=== PATIENT | male | born 1965 | race Hispanic/Latino ===

== ENCOUNTER → 2018-08-28 | Outpatient (CLI) | payer MEDICARE ==
[~2018-08-28] VITALS: Ht 170.2 cm; Wt 137.4 kg
[~2018-08-28] MED LIST: REGADENOSON 0.4 MG/5 ML PF SYG IVP SCH
== END | disposition home or self-care (01) ==
LOC: SHCH 08:40
PROVIDERS: ATTEND Internal Medicine Cardiovascular Disease
DX: Z01.810 Encounter for preprocedural cardiovascular examination (principal); I25.10 Atherosclerotic heart disease of native coronary artery without angina pectoris; I10 Essential (primary) hypertension
CPT/HCPCS: 78452; 93017; 96374; A9500 ×2; J2785

== ENCOUNTER 2019-05-29 06:59 | Day surgery (SDC) | payer MEDICARE ==
[~2019-05-29] VITALS: Ht 165.1 cm; Wt 142.7 kg
[2019-05-29] VITALS (7 sets, daily range): BP systolic 117–161; BP diastolic 62–83
[2019-05-29 08:24] LABS: POTASSIUM 4.8 mmol/L (3.5-5.1)
[2019-05-29 08:37] LABS: CREATININE 9.5 mg/dL (0.5-1.5)
[2019-05-29] MEDS ORDERED: DOCU-272 PO (08:38)
[2019-05-29] MEDS ORDERED: PRAV40TA3 PO (08:38)
[2019-05-29] MEDS ORDERED: [UNRECOGNIZED DRUG - OTHER] PO (08:38)
[2019-05-29] MEDS ORDERED: GABA600T10 PO (08:38)
[2019-05-29] MEDS ORDERED: FOLI1TAB85 PO (08:38)
[2019-05-29] MEDS ORDERED: METO50TA18 PO (08:38)
[2019-05-29] MEDS ORDERED: LISI-613 PO (08:38)
[2019-05-29] MEDS ORDERED: ACET-66 PO (08:38)
[2019-05-29] MEDS ORDERED: LISI40TA4 PO (08:38)
[2019-05-29] MEDS ORDERED: RANI150C4 PO (08:38)
[2019-05-29] MEDS ORDERED: VALA500T38 PO (08:38)
[2019-05-29] MEDS ORDERED: METO25TA6 PO (08:38)
[2019-05-29] MEDS ORDERED: FURO40TA5 PO (08:38)
[2019-05-29] MEDS ORDERED: SODIUM CHLORIDE 0.9% 1000ML 1,000 ML IV ONE (08:57)
[2019-05-29 09:12] LABS: BASOPHILS % (AUTO) 0.7 % (0.0-5.0); EOSINOPHILS % (AUTO) 4.4 % (0.0-8.0); HEMATOCRIT 36.1 % (42-54); LYMPHOCYTES % (AUTO) 9.8 % (21.0-51.0); MEAN CORPUSCULAR HEMOGLOBIN 33.4 pg (27.0-33.0); MEAN CORPUSCULAR HGB CONC 33.6 g/dL (32.0-36.0); MEAN CORPUSCULAR VOLUME 99.5 fL (79-99); MONOCYTES % (AUTO) 13.2 % (3.0-13.0); NEUTROPHILS % (AUTO) 71.9 % (40.0-77.0); PLATELET COUNT (AUTO) 129 K/uL (130-400); RED BLOOD CELL COUNT(AUTO) 3.63 MIL/uL (4.50-6.20); RED CELL DISTRIBUTION WIDTH 14.6 % (11.0-15.5); WHITE BLOOD COUNT (AUTO) 9.7 K/uL (4.8-10.8)
[2019-05-29] MEDS ORDERED: PROPOFOL 10 MG/ML 20ML VIAL IV ONE (11:40)
[2019-05-29] MEDS ORDERED: LIDOCAINE HCL 1% 20 ML VIAL ONE (11:40)
[2019-05-29] MEDS ORDERED: LIDOCAINE HCL-MPF 2% 5ML VIAL ONE (11:40)
--- NOTE | 2019-05-29 12:20 | NUR ---
dc pt dc home via [place], no distress noted. accompanied by family
== END 2019-05-29 12:20 | disposition home or self-care (01) ==
LOC: DAH 06:59 → ENDO 06:59 → EDSTATUS 11:00 → ENDO 12:20
PROVIDERS: ATTEND Surgery
DX: K21.9 Gastro-esophageal reflux disease without esophagitis (principal); I25.10 Atherosclerotic heart disease of native coronary artery without angina pectoris; E11.22 Type 2 diabetes mellitus with diabetic chronic kidney disease; I12.0 Hypertensive chronic kidney disease with stage 5 chronic kidney disease or end stage renal disease; N18.6 End stage renal disease; E78.5 Hyperlipidemia, unspecified; E66.01 Morbid (severe) obesity due to excess calories; Z95.5 Presence of coronary angioplasty implant and graft; Z98.890 Other specified postprocedural states; Z79.84 Long term (current) use of oral hypoglycemic drugs; Z79.899 Other long term (current) drug therapy; Z68.43 Body mass index [BMI] 50.0-59.9, adult
CPT/HCPCS: 36415; 43235; 80048; 82948 ×2; 85025; 93005; A4606; J2704; J3490; J7030